=== PATIENT | male | born 1945 | race Caucasian/White ===

== ENCOUNTER 2018-03-01 15:58 | Outpatient (RCR) | payer MEDICARE ==
[2018-03-01 15:58] VITALS: BP 183/98
[~2018-03-01 15:58] MED LIST: ALLO-1 PO; AMLO-99 PO; ATOR40TA24 PO; CIPR-214 PO; FAMO20TA28 PO; HYDR-389 PO; IBUP100T51 PO; LEVO125T6 PO; LEVO75TA68 PO; LOSA-44 PO; LOSA-54 PO; NAPR-1043 PO; PHEN200T32 PO; SERT-177 PO; SERT-184 PO; SIMV-44 PO; STATIN DRUG PO; THYROXINE PO; VALS-25 PO; [UNRECOGNIZED DRUG - CODE] PO
--- NOTE | 2018-03-05 18:23 | ONCOLOGY FOLLOW UP NOTE ---
EVENT DATE: March 01, 2018 CHIEF COMPLAINT/REASON FOR Visit Mr. Mendoza returns to discuss his CML. He continues to do quite well. HISTORY OF PRESENT ILLNESS Glenn returns. I reviewed his labs today which continue to show an undetectable BCR/ABL. He continues to feel well. No fevers, chills, signs of infection. He is taking his medication without issue. Apparently cost has been doing well as well. He does report some mild fatigue rated at 4/10. PAST MEDICAL HISTORY, PAST SURGICAL HISTORY 1. CML, chronic phase. 2. Gout. 3. Hypothyroidism. REVIEW OF SYSTEMS CONSTITUTIONAL: No fever, chills, weight change. HEENT: No headache or vision changes. PSYCHIATRIC: No anxiety or depression. ENDOCRINE: No heat or cold intolerance. CARDIOVASCULAR: No chest pain, dyspnea on exertion or edema. RESPIRATORY: No shortness of breath, wheeze, cough. NEUROLOGIC: Unchanged. Does have some mild neuropathy. GASTROINTESTINAL: No nausea, vomiting or diarrhea. GENITOURINARY: No gross hematuria. SKIN: No concerning rashes or bruising. LYMPHATIC: No concerning lumps or bumps. PHYSICAL EXAMINATION VITAL SIGNS: Blood pressure 183/88, pulse 81, respiratory rate 16, temperature 96.5, oxygen saturation 93% on room air. Weight 85.4 kg. Pain 0/10, fatigue 4/ 10. GENERAL: In stable condition, resting comfortably in the chair. LUNGS: Breathing clearly with no issues. EXTREMITIES: No clubbing, cyanosis or edema. PSYCHIATRIC: Normal mood and affect. SKIN: No concerning bruises or rashes. Remainder of full physical exam deferred today to amount of time spent in counseling and coordination of care. IMPRESSION AND PLAN Mr. Mendoza is a very pleasant 73-year-old gentleman with the following: Chronic myelogenous leukemia, under good control with his current TKI therapy. I reviewed his labs from [facility], which continue to show undetectable disease. I would like to check him every three months, however, he would prefer six months. This is reasonable with his travel schedule. Discussed his winter and travel in detail today. Billing: Return visit level 4. Total time 30 minutes, counseling time 20. MTDD
== END 2018-03-23 14:13 | disposition home or self-care (01) ==
LOC: ONC 15:58
PROVIDERS: ATTEND Internal Medicine
DX: C92.10 Chronic myeloid leukemia, BCR/ABL-positive, not having achieved remission (principal)
CPT/HCPCS: 99212

== ENCOUNTER 2018-04-15 07:06 | Emergency (ER) | payer MEDICARE ==
--- NOTE | 2018-04-15 07:16 | ER Report ---
History and Physical Time Seen By MD: 07:16 Hx. of Stated Complaint: CHEST PAIN STARTED AT 3 HPI/ROS CHIEF COMPLAINT: shortness of breath and chest pain. HISTORY OF PRESENT ILLNESS: This is a 73 year old male. He started having some chest pain at about 0300 last night. Awoke from sleep. Chest pressure in across the lower chest and substernal. No radiation. Had a feeling of jaw pain as well. No arm pain. [place] short of breath, worse with lying down, but improved with sitting. Had no worsening with exertion. No nausea. No sweats. He has a history of CML, hypertension, and hyperlipidemia. No history of [place] or blood clots. No recent fevers or cough. He was at a cocktail constitution party last night with alcohol use, but does not smoke. His blood pressure is elevated this morning, but has not taken his Losartan/HCTZ or Amlodipine this morning. REVIEW OF SYSTEMS: Constitutional: No fever or chills. Eyes: No vision changes. ENT: No congestion. Cardiovascular: As above. Respiratory: As above. Gastrointestinal: No abdominal pain. No nausea or vomiting. No change in bowel movements. Genitourinary: No dysuria or trouble with urination. Musculoskeletal: No other musculoskeletal pain. Skin: No rashes. Neurological: No numbness. No weakness. Allergies: Coded Allergies: judy (Verified Allergy, Intermediate, ABDOMINAL PAIN, 01/16/09) Uncoded Allergies: NKDA (Allergy, Mild, 09/06/07) Home Meds Active Scripts Nilotinib Hcl (TASIGNA) 200 Mg Capsule, 200 MG PO BID, #180 CAPSULE 6 Refills Prov:MONICA JIMENEZ MD 02/14/17 Reported Medications Ibuprofen (ADVIL) 100 Mg Tablet, 1-2 TAB PO PRN 03/03/17 Amlodipine Besylate (AMLODIPINE BESYLATE) 10 Mg Tablet, 1 TAB PO QDAY, TAB 03/03/17 Sertraline Hcl (SERTRALINE HCL) 50 Mg Tablet, 3 TAB PO QDAY, TAB 03/03/17 Levothyroxine Sodium (Levo-T) 125 Mcg Tablet, 125 MCG PO DAILY 03/03/17 Atorvastatin Calcium (LIPITOR) 40 Mg Tablet, 2 TAB PO QDAY, TAB 03/03/17 Losartan/Hydrochlorothiazide (LOSARTAN-HCTZ 100-25 MG TAB) 1 Each Tablet, 1 EACH PO QDAY 03/03/17 Losartan/Hydrochlorothiazide (HYZAAR 100-25 TABLET) 1 Each Tablet, 1 EACH PO QDAY 08/15/14 Discontinued Reported Medications Ciprofloxacin Hcl (CIPROFLOXACIN HCL) 500 Mg Tablet, 500 MG PO BID, #30 TAB 03/10/17 Phenazopyridine Hcl (PHENAZOPYRIDINE HCL) 200 Mg Tablet, 200 MG PO TID, #10 TAB 03/10/17 Famotidine (PEPCID) 20 Mg Tablet, 20 MG PO BID, #20 TAB 03/10/17 Acetaminophen/Hydrocodone (HYDROCODON-ACETAMINOPH 7.5-325) 1 Each Ea, 1 EACH PO Q4-6H Y for PAIN, #30 EA 03/10/17 Past Medical/Surgical History above Reviewed Nurses Notes: Yes Hx Smoking: Yes (SMOKED < 1 PPD FOR 10 YEARS. CHEWED TOBACCO FOR 10 YEARS) Smoking Status: Former Smoker Exposure to Second Hand Smoke?: No Hx Substance Use Disorder: No Hx Alcohol Use: Yes Constitutional Vital Sign - Last 24 Hours 04/15/18 04/15/18 04/15/18 04/15/18 07:13 07:30 07:36 08:00 Pulse 90 Resp 11 B/P (MAP) 177/97 (123) 158/96 (116) 136/86 (103) Pulse Ox 91 04/15/18 04/15/18 04/15/18 04/15/18 08:06 08:30 08:35 09:00 Pulse 90 87 Resp 16 12 B/P (MAP) 120/87 (98) 146/86 (106) Pulse Ox 91 90 04/15/18 04/15/18 04/15/18 04/15/18 09:05 09:10 09:30 09:40 Pulse 87 87 90 Resp 16 11 18 B/P (MAP) 140/80 (100) Pulse Ox 91 91 90 04/15/18 04/15/18 04/15/18 04/15/18 10:00 10:10 10:30 10:40 Pulse 86 76 Resp 13 13 B/P (MAP) 150/81 (104) 120/63 (82) Pulse Ox 89 89 04/15/18 04/15/18 04/15/18 11:00 11:05 11:10 Pulse 84 86 Resp 16 15 B/P (MAP) 129/74 (92) Pulse Ox 87 89 Physical Exam General Appearance: The patient is alert. No acute distress. Eyes: Pupils are equal, round. No pallor, injection or icterus. ENT: Mucous membranes are moist. Neck: Supple and non tender with palpation. No lymphadenopathy or masses. Respiratory: Lungs are clear to auscultation. Cardiovascular: Regular rate and rhythm. No murmurs, gallops or rubs. No edema. Gastrointestinal: Abdomen is soft and non tender. Nondistended. Normal active bowel sounds. Neurological: Alert and oriented x3. Skin: Warm and dry. No rashes. Musculoskeletal: No pain with palpation of the chest wall. No tenderness in palpation of the back/spine. DIFFERENTIAL DIAGNOSIS: After history and physical exam, differential diagnosis was considered for chest pain including but not limited to myocardial ischemia, pericarditis pulmonary embolus, chest wall pain, pleural inflammation and pulmonary infectious causes. Medical Decision Making Data Points Result Diagram: 04/15/18 0725 04/15/18 0725 Laboratory Hematology Test 01/15/16 00:00 04/15/18 07:25 04/15/18 10:01 Albumin 4.7 G/DL (3.5-5) 4.6 g/dl (3.5-5.0) Alkaline Phosphatase 85 IU/L (50-136) 95 U/L (0-126) Alanine Aminotransferase (ALT/SGPT) 23 U/L (9-53) 34 U/L (0-56) Aspartate Amino Transf (AST/SGOT) 18 IU/L (7-37) 29 U/L (0-35) Blood Urea Nitrogen 30 MG/DL (0-22) 28 mg/dl (9-21) Calcium Level 9.4 MG/DL (8.4-10.2) 9.3 mg/dl (8.4-10.2) Chloride Level 102 MMOL/L (22-30) 104 mmol/L (98-107) Carbon Dioxide Level 20 MMOL/L (22-32) 23 mmol/L (22-30) Creatinine 1.43 MG/DL (0.76-1.27) 1.40 mg/dl (0.66-1.25) Glucose Level 82 MG/DL (35-115) Potassium Level 4.2 MMOL/L (3.5-5.2) 3.9 mmol/L (3.5-5.0) Sodium Level 143 MG/DL (134-144) 144 mmol/L (137-145) Total Protein 7.1 G/DL (6.0-8.5) 7.7 g/dl (6.3-8.2) Total Bilirubin 0.5 MG/DL (0.0-1.2) 0.6 mg/dl (0.2-1.3) Red Blood Count 5.34 M/uL (4.00-5.60) Mean Corpuscular Volume 88.1 fL (80.0-96.0) Mean Corpuscular Hemoglobin 29.5 pg (26.0-33.0) Mean Corpuscular Hemoglobin Concent 33.5 g/dL (32.0-36.0) Red Cell Distribution Width 15.1 % (11.5-14.5) Mean Platelet Volume 8.1 fL (7.2-11.1) Neutrophils (%) (Auto) 80.8 % (39.4-72.5) Lymphocytes (%) (Auto) 6.7 % (17.6-49.6) Monocytes (%) (Auto) 10.6 % (4.1-12.4) Eosinophils (%) (Auto) 1.2 % (0.4-6.7) Basophils (%) (Auto) 0.7 % (0.3-1.4) Nucleated RBC Relative Count (auto) 0.0 /100WBC Neutrophils # (Auto) 8.8 K/uL (2.0-7.4) Lymphocytes # (Auto) 0.7 K/uL (1.3-3.6) Monocytes # (Auto) 1.1 K/uL (0.3-1.0) Eosinophils # (Auto) 0.1 K/uL (0.0-0.5) Basophils # (Auto) 0.1 K/uL (0.0-0.1) Nucleated RBC Absolute Count (auto) 0.00 K/uL D-Dimer Quantitative (PE/DVT) 0.42 ug/ml (0-0.50) Glomerular Filtration Rate Calc 49.7 Random Glucose 96 mg/dl (75-110) B-Type Natriuretic Peptide 60 pg/ml (0-100) Troponin I < 0.012 ng/ml Chemistry Test 01/15/16 00:00 04/15/18 07:25 04/15/18 10:01 Albumin 4.7 G/DL (3.5-5) 4.6 g/dl (3.5-5.0) Alkaline Phosphatase 85 IU/L (50-136) 95 U/L (0-126) Alanine Aminotransferase (ALT/SGPT) 23 U/L (9-53) 34 U/L (0-56) Aspartate Amino Transf (AST/SGOT) 18 IU/L (7-37) 29 U/L (0-35) Blood Urea Nitrogen 30 MG/DL (0-22) Calcium Level 9.4 MG/DL (8.4-10.2) 9.3 mg/dl (8.4-10.2) Chloride Level 102 MMOL/L (22-30) Carbon Dioxide Level 20 MMOL/L (22-32) Creatinine 1.43 MG/DL (0.76-1.27) Glucose Level 82 MG/DL (35-115) Potassium Level 4.2 MMOL/L (3.5-5.2) Sodium Level 143 MG/DL (134-144) Total Protein 7.1 G/DL (6.0-8.5) 7.7 g/dl (6.3-8.2) Total Bilirubin 0.5 MG/DL (0.0-1.2) 0.6 mg/dl (0.2-1.3) White Blood Count 10.9 k/uL (4.5-11.0) Red Blood Count 5.34 M/uL (4.00-5.60) Hemoglobin 15.7 g/dL (14.0-18.0) Hematocrit 47.0 % (42.0-52.0) Mean Corpuscular Volume 88.1 fL (80.0-96.0) Mean Corpuscular Hemoglobin 29.5 pg (26.0-33.0) Mean Corpuscular Hemoglobin Concent 33.5 g/dL (32.0-36.0) Red Cell Distribution Width 15.1 % (11.5-14.5) Platelet Count 197 K/uL (150-450) Mean Platelet Volume 8.1 fL (7.2-11.1) Neutrophils (%) (Auto) 80.8 % (39.4-72.5) Lymphocytes (%) (Auto) 6.7 % (17.6-49.6) Monocytes (%) (Auto) 10.6 % (4.1-12.4) Eosinophils (%) (Auto) 1.2 % (0.4-6.7) Basophils (%) (Auto) 0.7 % (0.3-1.4) Nucleated RBC Relative Count (auto) 0.0 /100WBC Neutrophils # (Auto) 8.8 K/uL (2.0-7.4) Lymphocytes # (Auto) 0.7 K/uL (1.3-3.6) Monocytes # (Auto) 1.1 K/uL (0.3-1.0) Eosinophils # (Auto) 0.1 K/uL (0.0-0.5) Basophils # (Auto) 0.1 K/uL (0.0-0.1) Nucleated RBC Absolute Count (auto) 0.00 K/uL D-Dimer Quantitative (PE/DVT) 0.42 ug/ml (0-0.50) Glomerular Filtration Rate Calc 49.7 B-Type Natriuretic Peptide 60 pg/ml (0-100) Troponin I < 0.012 ng/ml Coagulation Test 04/15/18 07:25 D-Dimer Quantitative (PE/DVT) 0.42 ug/ml EKG/Imaging EKG Interpretation 12 lead EKG: At 07:12 hours Rhythm: normal sinus rhythm, rate 100 [place]: normal QRS: normal ST segments: normal 12 lead EKG: At 09:55 hours Unchanged from previous Imaging EXAMINATION: PA and Lateral Chest 04/15/2018 7:29 AM HISTORY: Chest Pain COMPARISON: 03/09/2017 FINDINGS: Cardiomediastinal contours: Normal Lungs and pleura: Normal Bones/soft tissues: Old rib trauma. No acute finding. IMPRESSION: No acute cardiopulmonary abnormality. Report Dictated By: Freddy Nguyen MD at 04/15/2018 8:13 AM ED Course/Re-evaluation Clinical Indication for ER IV: IV Access ED Course After initial evaluation, labs were obtained. 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 Chest x-ray unremarkable as noted above. The patient was given his regular blood pressure medicines because of high blood pressure. After the losartan, hydrochlorothiazide, and amlodipine, the blood pressure came down to normal. Repeat troponin after 3 hours was negative and repeat EKG negative as well. Patient's pain is gone. Recommended follow-up with his primary care provider on Tuesday. Decision to Disposition Date: Apr 15, 2018 Decision to Disposition Time: 11:22 Depart Departure Latest Vital Signs Vital Signs Date Time Temp Pulse Resp B/P (MAP) Pulse Ox O2 Delivery O2 Flow Rate FiO2 04/15/18 11:10 86 15 89 04/15/18 11:00 129/74 (92) Impression: Primary Impression: Chest pain Additional Impression: Elevated blood pressure reading with diagnosis of hypertension Condition: Improved Disposition: HOME OR SELF-CARE Referrals: NOMAN SMITH MD (PCP) Patient Instructions: Chest Pain (ED), Hypertension (ED) Additional Instructions: We did not find any signs of heart attack, blood clots or pneumonia on evaluation today. We think that your chest pain is likely due to esophageal spasms. Try starting a anti-acid medicine like Pepcid or Zantac twice a day as needed. No other changes to medications. You blood pressure came down nicely after taking your regular medicines. Call Dr. Smith's office on Tuesday to schedule a follow-up appointment with them to talk about further treatments and testing, such as stress testing. Light activity over the weekend. Return as needed for worsening chest pain, nausea or shortness of breath. Problem Qualifiers Primary Impression: Chest pain Chest pain type: unspecified Qualified Codes: R07.9 - Chest pain, unspecified KASIA FLANAGAN MD Apr 15, 2018 07:16
[2018-04-15] MEDS ORDERED: ASPIRIN 81 MG CHEW PO ONE (07:30)
[2018-04-15] MEDS ORDERED: HYDROCHLOROTHIAZIDE 25 MG TAB PO ONE (07:35)
[2018-04-15] MEDS ORDERED: amLODIPine BESYL(*) 5 MG TAB PO ONE (07:35)
[2018-04-15 07:37] LABS: PLATELET COUNT, AUTOMATED 197 K/uL (150-450)
--- NOTE | 2018-04-15 08:27 | RADIOLOGY IMAGING REPORT ---
FACILITY: PATIENT NAME: Glenn Mendoza : 1945 MR: [id number] V: [id number] EXAM DATE: ORDERING PHYSICIAN: KASIA FLANAGAN TECHNOLOGIST: Location: [facility] Patient: Glenn Mendoza : 1945 Visit/Account:[id number] Date of Sevice: 04/15/2018 EXAMINATION: PA and Lateral Chest 04/15/2018 7:29 AM HISTORY: Chest Pain COMPARISON: 03/09/2017 FINDINGS: Cardiomediastinal contours: Normal Lungs and pleura: Normal Bones/soft tissues: Old rib trauma. No acute finding. IMPRESSION: No acute cardiopulmonary abnormality. Report Dictated By: Freddy Nguyen MD at 04/15/2018 8:13 AM Report E-Signed By: Freddy Nguyen MD at 04/15/2018 8:23 AM [id number]
[2018-04-15] MEDS ORDERED: LOSARTAN POTASSIUM 50 MG TAB PO SCH (09:00)
[2018-04-15 11:00] VITALS: BP 129/74
--- NOTE | 2018-04-15 12:22 | EKG ---
FACILITY: [facility] PATIENT NAME: NOMAN JACKMAN : [id number] MR: [id number] V: [id number] EXAM DATE: ORDERING PHYSICIAN: KASIA FLANAGAN TECHNOLOGIST: TAMI De La Cruz Reason : CHEST PAIN Blood Pressure : / mmHG Vent. Rate : 100 BPM Atrial Rate : 100 BPM P-R Int : 132 ms QRS Dur : 078 ms QT Int : 350 ms P-R-T Axes : 062 072 048 degrees QTc Int : 451 ms Normal sinus rhythm Normal ECG When compared with ECG of 09-MAR-2017 13:30, Previous ECG has undetermined rhythm, needs review Confirmed by TAYLER BURGESS ([id number]) on 04/15/2018 6:55:37 PM Referred By: PANCHITO Confirmed By:TAYLER BURGESS
--- NOTE | 2018-04-15 12:22 | EKG ---
FACILITY: [facility] [place] PATIENT NAME: NOMAN JACKMAN : [id number] MR: [id number] V: [id number] EXAM DATE: ORDERING PHYSICIAN: KASIA FLANAGAN TECHNOLOGIST: TAMI De La Cruz Reason : REPEAT Blood Pressure : / mmHG Vent. Rate : 089 BPM Atrial Rate : 089 BPM P-R Int : 140 ms QRS Dur : 074 ms QT Int : 376 ms P-R-T Axes : 063 074 063 degrees QTc Int : 457 ms Normal sinus rhythm Normal ECG When compared with ECG of 15-APR-2018 07:12, No significant change was found Confirmed by TAYLER BURGESS ([id number]) on 04/15/2018 6:55:46 PM Referred By: PANCHITO Confirmed By:TAYLER BURGESS
== END 2018-04-15 11:50 | disposition home or self-care (01) ==
LOC: ER 07:11
DX: R07.9 Chest pain, unspecified (principal); R03.0 Elevated blood-pressure reading, without diagnosis of hypertension
CPT/HCPCS: 36415; 83880; 84484; 85025; 85379; 93005; 99284; A9270; 82040; 82247; 82310; 82374; 82435; 82565; 82947; 84075; 84132; 84155; 84295; 84450; 84460; 84520; 99283

== ENCOUNTER → 2018-07-19 | Outpatient (CLI) | payer MEDICARE ==
[~2018-07-19] MED LIST changes: +AMLO-113 PO; -AMLO-99 PO
== END ==
LOC: LAB 11:49
DX: R97.20 Elevated prostate specific antigen [PSA] (principal)
CPT/HCPCS: 36415; 84153

== ENCOUNTER 2018-08-07 06:49 | Outpatient (RCR) | payer MEDICARE ==
[2018-08-07 13:07] VITALS: BP 127/80
--- NOTE | 2018-08-08 05:14 | ONCOLOGY FOLLOW UP NOTE ---
EVENT DATE: August 07, 2018 CHIEF COMPLAINT "I think I'm doing okay." HISTORY OF PRESENT ILLNESS Patient is a 73-year-old male who is seen today in six-month followup for chronic-phase CML. He continues on nilotnib, which he is tolerating well. He relates previously being on Gleevec and having significant side effects of nausea from this. He does have some mild nausea with nilotinib in the morning, but this resolves quickly without medication. He has not had any intercurrent infections and generally feels well. He does have fatigue and has noted some sexual dysfunction, but otherwise denies any new complaints. He and his are planning to go to [place] at the end of September for the next four months. He did have a flu shot and a Pneumovax this year. ONCOLOGY HISTORY Patient was diagnosed with CML in 2007. He began therapy with Gleevec for several years, which controlled his disease. However, due to side effects of nausea, this was discontinued and he was switched to nilotnib. BCR-ABL has been undetectable since that time. MEDICAL HISTORY 1. CML, chronic phase, October 2007. 2. Gout. 3. Hypothyroidism. 4. Hypertension. 5. Depression. SOCIAL HISTORY Patient is . They have two grown daughters. 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 He does not smoke or drink alcohol. FAMILY HISTORY Mother of lung cancer in her 80s. No other known family history of malignancy or blood disorders. REVIEW OF SYSTEMS A 12-point review of systems is performed and is negative except as stated above. PHYSICAL EXAMINATION VITAL SIGNS: Weight 85.1 kg, BP 127/80, P 81, R 16, temp 97.6, O2 saturation 88%. GENERAL: Patient is a well-developed, well-nourished male in no acute distress. HEAD: Normocephalic, atraumatic. EYES: Sclerae anicteric. MOUTH: Moist mucous membranes without lesions. NECK: Supple. No palpable adenopathy. CARDIOVASCULAR: Heart rate regular, 80 per minute, without murmur, S3 or S4. LUNGS: Clear bilaterally. ABDOMEN: Soft, obese, nontender. No organomegaly, although limited by body habitus. Active bowel sounds. EXTREMITIES: No edema. NEUROLOGIC: Nonfocal. LABORATORY CBC on 07/13/18 showed a WBC of 7.1, hemoglobin 15.1, hematocrit 46.2, platelets 237,000. CMP was within normal limits except for a mildly elevated creatinine of 1.4. BCR-ABL remains undetectable. IMPRESSION AND PLAN 1. The patient is a 73-year-old male diagnosed with chronic myelocytic leukemia in October 2007. He is now in chronic phase under good control with nilotnib. He is tolerating this well. He complains of only mild nausea first thing in the morning with his nilotnib, but this resolves quickly. He will continue current dosing. 2. Follow up in six months for continued care. CBC, CMP, and BCR-ABL will be drawn one week before that visit. MTDD
== END 2018-08-30 13:29 | disposition home or self-care (01) ==
LOC: ONC 06:49
PROVIDERS: ATTEND Internal Medicine
DX: C92.10 Chronic myeloid leukemia, BCR/ABL-positive, not having achieved remission (principal)
CPT/HCPCS: 99212

== ENCOUNTER 2019-02-05 10:49 | Outpatient (RCR) | payer MEDICARE ==
--- NOTE | 2018-12-07 10:26 | NUR ---
LUIS contacted [facility] about the fax that indicated he was approved for a three month free supply through the PAP. [facility] needed the prescription sent in. LUIS faxed the prescription. [facility] will need the patient to complete the patient assistance program application again and send in income documentation. LUIS left a message for pt with this information requesting a call back.
[~2019-02-05 10:49] MED LIST changes: -AMLO-113 PO; +AMLO-127 PO
[2019-02-05 11:00] VITALS: BP 164/78
--- NOTE | 2019-02-06 05:43 | ONCOLOGY FOLLOW UP NOTE ---
EVENT DATE: February 05, 2019 CHIEF COMPLAINT/REASON FOR VISIT Mr. Mendoza is a pleasant 74-year-old gentleman with CML, currently on nilotinib and under excellent control, who returns for followup. HISTORY OF PRESENT ILLNESS Mr. Mendoza returns. Please see my prior note from the fall of 2017 for more details, as our computer systems are down. In short, Mr. Mendoza has a long history of CML with excellent control with nilotinib. He had an episode in November 2016 where his PCR became elevated again. We had discussed discontinuation protocols for nilotinib in the past, but this would exclude him. Therefore, I recommended he continue nilotinib indefinitely. He is doing extremely well. No fevers or chills. No issues with infection. In fact, his was quick sick over the winter and Mr. Mendoza only had "a tickle in his throat" that lasted about a week. No recent colds or other issues. He is taking his pills regularly. We are working to get insurance coverage, as he recently had changed insurance and he only has 11 days of pills left. We will do everything we can to do that. ONCOLOGY HISTORY Patient was diagnosed with CML in 2007. He began therapy with Gleevec for several years, which controlled his disease. However, due to side effects of nausea, this was discontinued and he was switched to nilotnib. BCR-ABL has been undetectable since that time. PAST MEDICAL HISTORY 1. CML, chronic phase, October 2007. 2. Gout. 3. Hypothyroidism. 4. Hypertension. 5. Depression. SOCIAL HISTORY Patient is . They have two grown daughters. 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 He does not smoke or drink alcohol. FAMILY HISTORY Mother of lung cancer in her 80s. No other known family history of malignancy or blood disorders. REVIEW OF SYSTEMS CONSTITUTIONAL: No fevers, chills, significant weight change. HEENT: No headache, vision changes. CARDIOVASCULAR: No chest pain, dyspnea on exertion, edema. RESPIRATORY: No shortness of breath, wheeze, cough. GASTROINTESTINAL: No nausea or vomiting. GENITOURINARY: No dysuria or hematuria. MUSCULOSKELETAL: No wheezing or joint pain. PSYCHIATRIC: No anxiety or depression. ENDOCRINE: No heat or cold intolerance. Remainder of 14-point review of systems otherwise negative. PHYSICAL EXAMINATION VITAL SIGNS: Blood pressure 164/78, pulse 76, respiratory rate 16, temperature 97.3 Fahrenheit, oxygen saturation 90% on room air. Weight 86.4 kg. Pain 0/10, fatigue 0/10. GENERAL: Stable condition, resting comfortably in the chair. HEENT: Normocephalic, atraumatic. LYMPHATIC: Negative. CARDIOVASCULAR: Regular rate and rhythm. No murmur, rub, or gallop today. His blood pressure is elevated, and I recommend he follow up with Dr. Carroll. RESPIRATORY: Clear to auscultation bilaterally. ABDOMEN: Soft, nontender, nondistended. EXTREMITIES: No clubbing, cyanosis, or edema. Remainder of physical exam otherwise unremarkable. IMPRESSION/REPORT/PLAN Mr. Mendoza is a pleasant 74-year-old gentleman with the following: * Chronic myeloid leukemia, currently undetectable. He has had a positive BCR- ABL PCR test in November 2016 while on nilotinib. Thus, he is not a candidate for the discontinuation protocol and should continue nilotinib indefinitely. This TKI has been quite effective for him, with minimal side effects, so we would like to do everything we can to get it reauthorized for him. Answered all of his many questions today. He needs to get labs every three months, and I will see him every six months. BILLING Return visit level 4. Total time 30 minutes, counseling time 20. MTDD
--- NOTE | 2019-02-06 08:23 | NUR ---
Patient assistance program received all the needed income documentation from the patient and was awaiting an additional signature on the patient assistance form. RN obtained signature and faxed in. SW will follow up on program enrollment on Tuesday of this week to ensure the document was received and is being processed to hopefully provide another shipment to the patient LISA. Pt reported yesterday he had 11 days worth of drug until he was completely out.
--- NOTE | 2019-02-28 11:06 | NUR ---
LUIS rec'd ifnormation that [email or web address] is no longer willing to help the pt with PAP until he receives a denial from [employer]. LUIS applied for [employer] funds. Now awaiting income documentation to send to [employer]. will email to [email or web address]
--- NOTE | 2019-02-28 12:14 | NUR ---
LUIS emailed the income documentation to [employer]. Will await a response from [employer].
== END 2019-03-05 13:22 | disposition home or self-care (01) ==
LOC: ONC 10:49
PROVIDERS: ATTEND Internal Medicine
DX: C92.10 Chronic myeloid leukemia, BCR/ABL-positive, not having achieved remission (principal); Z79.899 Other long term (current) drug therapy
CPT/HCPCS: 99212